=== PATIENT | male | born 1995 | race Caucasian/White ===

== ENCOUNTER 2016-11-25 16:27 | Emergency (ER) | payer OTHER ==
[~2016-11-25] VITALS: Ht 182.9 cm; Wt 83.9 kg
[2016-11-25 16:35] VITALS: BP 147/79
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
== END 2016-11-25 17:06 ==
LOC: ERH 16:27
DX: R51 Headache (principal)